=== PATIENT | male | born 1955 | race Caucasian/White ===

== ENCOUNTER 2016-08-19 12:24 | Emergency (ER) | payer OTHER ==
[2016-08-19 15:01] LABS: Hematocrit 44.7 % (42.0-52.0); Hemoglobin 15.3 gm/dL (13.5-18.0); Mean Cell Volume 92.9 fl (78-100); Mean Corpuscular Hemoglobin 31.8 pg (27-31); Mean Corpuscular Hgb Conc 34.2 g/dl (32-36); Mean Platelet Volume 9.4 fl (6.0-9.5); Neutrophil # 7.3 K/mm3 (1.3-6.0); Neutrophil % 65.8 % (42-75.0); Platelet Count 291 K/mm3 (150-450); Red Blood Count 4.81 M/mm3 (4.7-6.0); Red Cell Distribution Width 13.2 % (11.5-14.0)
[2016-08-19 15:11] LABS: Anion Gap 13.7 mmol/L (6.8-13.8); BUN/Creatinine Ratio 18.8 (9.0-21.6); Bilirubin, Total 0.4 mg/dL (0.0-1.1); Ca. Corrected For Albumin 8.4 mg/dL (8.4-10.2); Calcium * 8.7 mg/dL (7.9-10.9); Carbon Dioxide 28.9 mmol/L (24-32.6); Potassium 4.6 mmol/L (3.4-4.6); Total Protein 7.4 gm/dL (6.2-8.2)
[2016-08-19 15:45] LABS: Hemoglobin A1C 5.9 % (4.00-6.0)
--- NOTE | 2016-08-19 15:46 | ERNOTE ---
Medical Problem HPI - Narrative Date of Service: 08/19/16 - General Chief Complaint: General Assessment Time Seen by Provider: 08/19/16 15:26 Source: patient Exam Limitations: no limitations - Immun/Allergies/Home Medications Immunizations: IMMUNIZATION HX Immunizations Up to Date Yes History of Influenza Vaccine Yes Hx Pneumococcal Vaccination More Information Required Allergies/Adverse Reactions: Allergies ibuprofen Adverse Reaction (Mild, Verified 08/19/16 13:36) gi upset milk Adverse Reaction (Mild, Verified 08/19/16 13:36) intolerance Lueptup-Hvz-Imm Reductase Inhibitor Adverse Reaction (Mild, Verified 08/19/16 13 :36) Muscle Pain Home Medications: HOME MEDICATIONS Albuterol Sulfate [Proventil Hfa] 1 - 2 puff IH Q6H PRN 05/29/13 [Last Taken Unknown] Omeprazole 20 mg PO DAILY 05/29/13 [Last Taken 02/26/14] Fluticasone/Salmeterol [Advair 250-50 Diskus] 1 puff IH BID 04/13/15 [Last Taken Unknown] Diclofenac Sodium [Voltaren] 100 mg PO BID 03/18/16 [Last Taken Unknown] Warfarin Sodium [Coumadin] 0 mg PO DAILY 03/18/16 [Last Taken Unknown] Albuterol Sulfate 2.5 mg IH Q4H PRN 08/19/16 [Last Taken Unknown] Aspirin [Aspirin Enteric Coated] 81 mg PO DAILY 08/19/16 [Last Taken Unknown] Cyclobenzaprine HCl [Flexeril] 10 mg PO TID PRN #30 tab 08/19/16 [Last Taken Unknown] - History of Present History Narrative: Pt. comes in with c/o intermittent leg cramps that occur mostly at night and a belly cramp that occurs when he sits forward in his truck and R lateral back pain that occurs only when he bends to the left. Pt. garza a hx of multiple surgeries in his back and L hip. Review of Systems - Review of Systems Constitutional: Present: no symptoms reported. Absent: recent illness, fever, chills, weakness, fatigue EYE: Present: no symptoms reported ENT: Present: no symptoms reported Respiratory: Present: no symptoms reported. Absent: shortness of breath, cough , wheezing Cardiology: Present: no symptoms reported. Absent: chest pain, palpitations, edema Gastrointestinal/Abdominal: Present: abdominal pain - intermittent LUQ when bent at waist. Absent: nausea, vomiting, diarrhea Genitourinary: Present: no symptoms reported. Absent: frequency, pain, dysuria , decreased urinary output Musculoskeletal: Present: back pain - R lateral when he bends to the left, muscle pain - B legs spasm intermittently Skin: Present: no symptoms reported Neurological: Present: no symptoms reported. Absent: headache, dizziness/light- headedness, numbness, tingling Endocrine: Present: no symptoms reported All Other Systems: All systems neg except as marked - Patient's Past Medical History Patient History - Medical: No pertinent hx Patient History - Cardiac/Respiratory: COPD, Pulmonary Embolism Patient History - Cancer: No Hx of Cancer Patient History - Surgical Procedures: Other - pin in left little finger - Family History Father Family History - Medical: , History Unknown m,other Family History - Medical: No pertinent hx Family History - Cardiac/Respiratory: History Unknown - Social History Living Situations: home Smoking Status: Current every day smoker Have you smoked in the past 12 months: Yes Do you dip or chew tobacco: No Alcohol Use: occasionally Drug Use: none Physical Exam - Physical Exam General Appearance: Present: wd/wn, alert, no apparent distress Eye Exam: Normal inspection: bilateral, PERRL: bilateral, EOMI: bilateral Ears, Nose, Throat: Present: normal ENT inspection, hearing grossly normal, normal pharynx Neck: Present: normal inspection, nontender. Absent: lymphadenopathy (R), lymphadenopathy (L) Respiratory: Present: no respiratory distress, normal breath sounds, no accessory muscle use, chest nontender, lungs clear Cardiovascular/Chest: Present: regular rate, rhythm, no murmur, normal peripheral pulses Gastrointestinal/Abdominal: Present: normal bowel sounds, nondistended, soft, no organomegaly, tenderness - LUQ Back Exam: Present: normal inspection, normal range of motion, no CVA tenderness Extremity Exam: Present: normal inspection, non-tender, no edema, normal range of motion Neurological Exam: Present: alert, oriented, normal mood/affect, no motor/ sensory deficits Skin Exam: Present: normal color, warm/dry. Absent: pallor, skin rash ED Progress - Results and Orders Patient's Lab Results:: I have reviewed the patient's lab results. - Vital Signs Patient's Vital Signs:: I have reviewed the patient's vital signs. Vital Signs: Vital Signs 08/19/16 08/19/16 13:25 15:14 Temperature 37 C Pulse Rate 90 79 Respiratory 18 12 Rate Blood Pressure 151/87 169/82 O2 Sat by Pulse 95 95 Oximetry - Progress/Reassessment Chief Complaint: General Assessment Departure - Departure Clinical Impression: Restless leg syndrome, Muscle spasm Disposition: Home self-care Condition: Good Instructions: Muscle Cramps and Spasms, [id number], Restless Legs Syndrome Additional Instructions: Increase fluid intake and eat vitamin rich foods. Referrals: Eamon Parekh MD [Primary Care Provider] - Prescriptions: Cyclobenzaprine HCl [Flexeril] 10 mg PO TID PRN #30 tab PRN Reason: MUSCLE SPASMS
[2016-08-19 17:12] VITALS: BP 140/80
== END 2016-08-19 17:33 | disposition home or self-care (01) ==
LOC: ER 12:24
DX: G25.81 Restless legs syndrome (principal); M62.838 Other muscle spasm; K59.00 Constipation, unspecified; F17.210 Nicotine dependence, cigarettes, uncomplicated; J44.9 Chronic obstructive pulmonary disease, unspecified

== ENCOUNTER 2017-04-17 06:32 | Day surgery (SDC) | payer OTHER ==
[~2017-04-17 06:32] MED LIST: RINGER'S SOLUTION,LACTATED 1,000 ML IV PRN; ceFAZolin SODIUM 1 GM VIAL IV PRN
[2017-04-17 06:57] LABS: INR 0.94 INR (0.90-1.10); Prothrombin Time (Patient) 9.8 Seconds (9.4-11.4)
[2017-04-17] MEDS ORDERED: RINGER'S SOLUTION,LACTATED 1,000 ML IV ONE ×2 (07:10→08:00)
--- NOTE | 2017-04-17 09:31 | OR ---
Operative Report - Dictated Report Narrative: Date: 04/17/2017 Physician: Kieran Avitia M.D. Taxation Agent: Constantino Padilla PA-C Preoperative diagnosis: Right Shoulder supraspinatus rotator cuff tear, biceps tendinopathy with superior labrum anterior to posterior tear Postoperative diagnosis: Right Shoulder supraspinatus rotator cuff tear, biceps tendinopathy, superior labrum anterior to posterior tear, partial-thickness subscapularis tear Procedure: Right shoulder arthroscopy with mini open rotator cuff repair, biceps tenotomy, labral debridement, subscapularis rotator cuff debridement Anesthesia: General plus regional Complications: None Estimated blood loss: Minimal Specimens: None Retained implants: [employer] 4.5 mm peek helicoil anchor 1, footprint anchor 2 Drains: None Indications: Mr. Kincaid Is a 62 year-old gentleman who has been followed in my clinic with complaints of shoulder pain consistent with rotator cuff and labral as well as biceps pathology. Physical exam and diagnostic imaging were consistent with his complaints and concern for full-thickness rotator cuff tear and biceps and labral tear. Conservative measures have failed including, but not limited to, passage of time, activity modification, medications, physical therapy/home exercise program, or injections. The risks, benefits, and alternatives were discussed in clinic. The risks being , bleeding, infection, blood clots, nerve, tendon, ligament, blood vessel injury, persistent pain, arthrosis, stiffness, need for prolonged therapy, need for additional procedures, and persistent symptoms. Consent was obtained in the clinic. Procedure: After marking the correct extremity in the preoperative holding area, a timeout was performed in the operating room. IV antibiotics consisting of Ancef were administered prior to the procedure. A general followed by regional anesthetic was induced by the nurse dredge mechanic per my request. This was in the supine position, then the patient was transitioned to a beachchair position with all bony prominences well-padded, head in neutral, the nonoperative arm well supported, and the legs padded with SCDs in place. The operative shoulder was then prepped and draped in a standard sterile fashion. Preoperatively the shoulder had full passive range of motion, and no gross instability. After marking out the bony landmarks, saline was infused into the joint through a posterior lateral portal site. A kirk incision was made, and the blunt trocar and cannula was introduced into the shoulder joint. An accessory portal was placed in the rotator cuff interval using a spinal needle for guidance. Upon initial evaluation, the biceps tendon showed significant tearing and fraying as it inserted onto the labrum. The middle glenohumeral ligament was intact. Subscapularis tendon was for age at the superior insertion but not frankly torn. The glenoid showed moderate degenerative change. The humeral head articular surface showed moderate degenerative change. The anterior labrum was frayed but intact up to the 2 o'clock position. The superior labrum was torn and flipped into the joint at the biceps labral junction from approximately 10: 00 to 2:00. The pouch was unremarkable. The posterior labrum was frayed but intact. The supraspinatus tendon was torn and elevated from just behind the biceps to the anterior portion of the infraspinatus. The infraspinatus tendon was torn at the anterior portion but intact posteriorly. Utilizing accessory portal the biceps was tenotomized as it inserted onto the labrum. The flipped unstable superior labrum was debrided maintaining the anterior and posterior labral tissue. The subscapularis superior portion was debrided using a shaver involving less than 50% of the thickness over less than 5-6 mm. Attention was then turned to the subacromial space. Subacromial bursectomy was performed utilizing the prior portals. The coracoacromial ligament was intact. The bursal side of the rotator cuff demonstrated full-thickness tears identified intra-articularly. The acromial arch was unremarkable. Based on the arthroscopic findings, as well as exam and radiographic findings, it was elected to proceed with a mini open rotator cuff repair. A longitudinal incision centered over the previously identified rotator cuff tear was made just off the edge of the acromion. This was approximately 5 centimeters in length. The deltoid fascia was split sharply in line with its fibers, and blunt dissection was carried through the deltoid muscle. Any remaining subacromial bursal tissue was debrided in order to expose the underlying rotator cuff tear. The rotator cuff tear appeared to be inverted T orientation. The tuberosity was debrided of its soft tissues producing a bleeding bed for the tendon to be secured to. 1 4.5 mm PEEK helicoil anchor was placed just off the articular surface of the humeral head. A series of horizontal mattress sutures were placed at the prepared edge of the rotator cuff. This allowed for a tension-free return of the tendon to the greater tuberosity. The sutures were then passed longitudinally into 2 4.5 mm PEEK footprint anchor. One of these was utilized as a knotless repair of the anterior portion of the infraspinatus. This was performed and a suture bridge technique. This gave good overall compression to the rotator cuff at the insertion site. The shoulders place a range of motion and had no lift off of the repair site as well as no crepitance or signs of impingement. Full passive range of motion was able to be obtained. Once it was felt that the rotator cuff was adequately repaired, the wounds were thoroughly irrigated. 0 Vicryl was utilized in order to repair the deltoid fascia. 3-0 Vicryl was placed in the subcutaneous tissue. The rotator cuff incision as well as the portal sites were closed with interrupted nylon. Dressings consisting of Xeroform, 4 x 4, ABD, soft roll, and tape were applied. All sponge, needle, blade, and instrument counts were correct prior to closing the wounds. The patient was awoken and transferred to the postanesthesia care unit in stable condition.
--- NOTE | 2017-04-17 09:51 | OR ---
Anesthesia Procedure Note - Anesthesia Procedure Note Date of Service: 04/17/17 Narrative: Vital Signs - Last Taken Temp 36.5 C 04/17/17 09:40 Pulse 89 04/17/17 09:45 Resp 16 04/17/17 09:45 BP 151/85 04/17/17 09:45 Pulse Ox 98 04/17/17 09:45 O2 Oxygen Delivery Method Nasal Cannula 04/17/17 09:50 ANESTHESIA PROCEDURE NOTE Date of Procedure: 04/17/2017 Time of procedure: . Performed by: KIRK Jorge CRNA, MSN Desk Assistant: Marisela Romo RN. Preprocedure diagnosis: Post right shoulder surgery pain relief. Post procedure diagnosis: Same. Procedure: Right Interscalene nerve block. Indications: Post great shoulder surgery pain relief. Findings: See below. Details of the procedure: The patient was brought to OR #4 and placed in semi- Fowlers position. The patient was prepped with chlorhexidine and using ultrasound guidance the right interscalene segment of the brachial plexus was identified and lidocaine 1% was infiltrated to the skin of the intended injection site. Under ultrasound guidance the interscalene nerve bundles were approached until a shoulder/arm response was identified on nerve stimulator. Once the stimulator response was effective at less than 0.5 mV and greater than 0.3 mV the femoral nerve was surrounded with 30 mL bupivacaine 0.5% with 1-200, 000 epinephrine. Please see radiology/ultrasound report for details and images of the procedure. EBL: 0 Fluids: N/A. Specimen: N/A. Post procedure condition: The patient tolerated the procedure well. No complications were noted. Thank you for this consultation. Enoc Mullins CRNA, ARNP, MSN
[2017-04-17 14:20] VITALS: BP 140/74
== END 2017-04-17 06:33 | disposition home or self-care (01) ==
LOC: AMB 06:32
PROVIDERS: ATTEND Orthopaedic Surgery
PROC: 0LQ10ZZ Repair Right Shoulder Tendon, Open Approach (ICD-10-PCS; 2017-04-17)
PROC: 3E0T3BZ Introduction of Anesthetic Agent into Peripheral Nerves and Plexi, Percutaneous Approach (ICD-10-PCS; 2017-04-17)
PROC: 0RBJ4ZZ Excision of Right Shoulder Joint, Percutaneous Endoscopic Approach (ICD-10-PCS; principal; 2017-04-17 08:00)
DX: S43.491A Other sprain of right shoulder joint, initial encounter (principal); M75.101 Unspecified rotator cuff tear or rupture of right shoulder, not specified as traumatic; M75.21 Bicipital tendinitis, right shoulder; E11.9 Type 2 diabetes mellitus without complications; E78.5 Hyperlipidemia, unspecified; K21.9 Gastro-esophageal reflux disease without esophagitis; M19.90 Unspecified osteoarthritis, unspecified site; J44.9 Chronic obstructive pulmonary disease, unspecified; Z86.711 Personal history of pulmonary embolism; Z79.01 Long term (current) use of anticoagulants; F17.200 Nicotine dependence, unspecified, uncomplicated; Z68.27 Body mass index [BMI] 27.0-27.9, adult

== ENCOUNTER 2018-11-16 07:41 | Inpatient (IN) ==
[~2018-11-16 07:41] MED LIST changes: +MORPHINE SULFATE 30 MG TABLET.SA PO PRN; +TRANEXAMIC ACID 1,000 MG in NORMAL SALINE 100 ML IV PRN
[2018-11-16 08:52] LABS: Prothrombin Time (Patient) 10.3 Seconds (9.1-10.7)
[2018-11-16 08:53] LABS: INR 1.04 INR (0.92-1.08)
--- NOTE | 2018-11-16 11:14 | ANES ---
Anesthesia Pre Procedure Eval Vitals/Labs: Last Vital Signs Temp 37.0 C 11/16/18 08:00 Pulse 96 11/16/18 08:00 Resp 20 11/16/18 08:00 BP 135/73 11/16/18 08:00 Laboratory Last Values PT 10.3 Seconds (9.1-10.7) 11/16/18 08:35 INR (Anticoag Therapy) 1.04 INR (0.92-1.08) 11/16/18 08:35 HOME MEDICATIONS Albuterol Sulfate [Proventil Hfa] 1 - 2 puff IH Q6H PRN 05/29/13 [Last Taken Unknown] Albuterol Sulfate 2.5 mg IH Q6H PRN 08/19/16 [Last Taken Unknown] Aspirin [Aspirin Enteric Coated] 81 mg PO DAILY 08/19/16 [Last Taken 11/10/18] Warfarin Sodium 5 mg PO TU 05/11/18 [Last Taken 11/04/18] Warfarin Sodium [Coumadin] 7 mg PO SUMOWETHFRSA 05/11/18 [Last Taken 11/08/18] omeprazole 20 mg capsule,delayed release 20 mg PO DAILY #90 cap 05/26/18 [Last Taken 11/15/18] fluticasone 200 mcg-vilanterol 25 mcg/dose powder for inhalation 1 inh IH DAILY #60 ea 09/22/18 [Last Taken 11/15/18] TENS unit electrodes pads See Dose Instructions .ROUTE .MEDSUPPLY #4 ea 09/30/18 [Last Taken Unknown] hydrocodone 7.5 mg-acetaminophen 300 mg tablet 1 tab PO Q6H PRN #60 tab 11/15/18 [Last Taken 11/15/18] metoprolol tartrate 25 mg tablet 25 mg PO BID #60 tab 11/15/18 [Last Taken 11/15/18] Allergies/Adverse Reactions: Allergies Allergy/AdvReac Type Severity Reaction Status Date / Time ibuprofen AdvReac Mild gi upset Verified 11/16/18 07:57 milk AdvReac Mild intolerance Verified 11/16/18 07:57 Jnnbieq-Jzn-Xll Reductase AdvReac Mild Muscle Pain Verified 11/16/18 07:57 Inhibitor - Planned Procedure Planned Procedure: Rt anatomical Total Shoulder Medication List Reviewed:: Yes Allergies Verified: Yes Medical History (Last Reviewed 04/02/19 @ 11:04 by Schuyler Whittaker CRNA) Osteoarthritis of shoulder (Chronic) Satnam presents for evaluation of right shoulder pain consistent with glenohumeral osteoarthritis. He underwent previous rotator cuff repair approximately 2 years ago. He has had continued pain and stiffness since that time consistent with arthritis. His recent MRI demonstrates an intact rotator cuff. I counseled him on options including anatomic total shoulder replacement. I counseled him on the risk of surgery including, but not limited to, infection, neurovascular injury, intraoperative fracture, aseptic loosening, dislocation, persistent pain, weakness, stiffness, and risks with anesthesia. After discussion he wishes to proceed with a right anatomic total shoulder replacement. Spinal stenosis (Chronic) Shoulder pain (Chronic) Onset Date: Unknown right Tenosynovitis of forearm (Chronic) Pulmonary embolism (Chronic) Osteopenia (Chronic) Osteoarthritis (Chronic) Lumbago (Chronic) Hyperlipidemia (Chronic) Clavicle fracture (Chronic) DVT (deep venous thrombosis) (Chronic) history COPD (chronic obstructive pulmonary disease) (Chronic) history Cervical spondylitis (Chronic) Back pain (Chronic) Surgical History (Last Reviewed 11/16/18 @ 11:04 by Schuyler Whittaker CRNA) History of inguinal hernia repair Onset Date: 07/29/18 [facility]-left H/O arthroscopic knee surgery Onset Date: 08/20/10 [facility]-right H/O esophagogastroduodenoscopy Onset Date: 06/23/07 [facility]-01/08/05-benign stratified squamous epithelium. 06/23/07-mild esophagitis. H/O hand surgery Onset Date: Unknown right H/O laminectomy Onset Date: 10/27/11 04/27/01, 04/2008, 10/27/11 [facility]-L3-L5 direct lateral interbody fusion and posterior lateral fusion H/O nasal septoplasty Onset Date: 11/25/01 [facility] History of arthroscopic surgery of shoulder Onset Date: 04/17/17 [place]-right w/mini open rotator cuff repair, biceps tenotomy, labrl debridement, subscapularis rotator cuff debridement. History of tonsillectomy Onset Date: ~1970 Loss of teeth due to extraction Onset Date: Unknown all teeth Previous back surgery Onset Date: 09/10/15 [facility]-Dr Found- 2 plates and 4 scews S/P epidural steroid injection Onset Date: 02/04/08 12/05/05-C3-4, 02/04/08-L3-4 S/P tendon repair Onset Date: ~1969 right forearm h/o finger surgery Onset Date: Unknown [facility]-left small finger History of carpal tunnel release Onset Date: 06/02/14 10/21/9930-Hstfczb-tbql. 06/02/14 [place]-right. History of colonoscopy Onset Date: 11/30/14 [facility]-01/08/05-adenomatous polyp w/superficial atypia and early carcinoma in situ. 06/23/07-internal hemorrhoids. 10/04/13 [place]-diverticulosis. Recheck 10 yrs. 11/30/1433-Cjpqoas-mxblgoy polyps. History of total hip replacement Onset Date: ~07/2008 Left-1986, 1989, 07/2008 revision left total hip S/P cubital tunnel release Onset Date: 06/02/14 10/21/99 [facility]-left. 06/02/14 [place]-right history of bone graph Onset Date: ~1982 [facility] leg Family History (Last Reviewed 11/16/18 @ 11:04 by Schuyler Whittaker CRNA) Father , never knew him No problems noted. Mother Heart disease Hypertension Diabetes CVA (cerebral vascular accident) Brother Diabetes 1 brother Alive and well 1 brother Sister Cancer brain cancer, female cancer Diabetes Daughter Down's syndrome - Airway/Neck/Teeth Within Normal Limits:: Yes Denture Type: Full upper, Full lower Mallampatti Score: 2 Thyromental (T-M) distance: > 6 cm Mandibulo Hyoid distance: > 3 cm - Respiratory Respiratory History: COPD Respiratory Physical: wheezing Smoking Status: Current every day smoker Discussed smoking cessation including day of surgery: No Sleep Apnea currently treated: No Sleep Apnea by current assessment: No Discussed Risks/Treatment of AMARA: No - Cardiovascular Tolerate Activity: Fair Heart Sounds: S1 & S2, Regular - Anesthesia Assessment and Plan ASA Class: PS, III Anesthesia Type Plan: General LMA, Block - Right ultrasound guided interscalene nerve block for postop analgesia
[2018-11-16] MEDS ORDERED: ACETAMINOPHEN 500 MG TABLET PO PRN (13:53)
[2018-11-16] MEDS ORDERED: MAGNESIUM HYDROXIDE 30 ML UDC PO PRN (13:53)
[2018-11-16] MEDS ORDERED: MORPHINE SULFATE 2 MG/ML DISP.SYRIN IV PRN ×2 (13:53→15:00)
[2018-11-16] MEDS ORDERED: NORMAL SALINE 1,000 ML IV PRN (13:53)
[2018-11-16] MEDS ORDERED: oxyCODONE HCL/ACETAMINOPHEN 1 TAB TABLET PO PRN (13:53)
[2018-11-16] MEDS ORDERED: ONDANSETRON HCL/PF 2 MG/ML VIAL IV PRN (13:53)
[2018-11-16] MEDS ORDERED: MAG HYDROX/ALUMINUM HYD/SIMETH 30 ML UDC PO PRN (13:53)
--- NOTE | 2018-11-16 14:13 | OR ---
Operative Report - Dictated Report Narrative: Date: 11/16/2018 Physician: Carroll Robledo M.D. Refurbish Technician: Juan Coto PA-C Preoperative diagnosis: Right glenohumeral osteoarthritis Postoperative diagnosis: Right glenohumeral osteoarthritis Procedure: Right anatomic total shoulder arthroplasty Anesthesia: General plus regional Complications: None Estimated blood loss: 150 mL Specimens: Bone for disposal Retained implants: Depuy Global Unite size 14 standard stem, Global Unite anatomic proximal body size 14, Global Unite eccentric humeral head 56 mm x 21 mm, Global anchor peg glenoid size 52 mm Drains: None Indications: Satnam is a 63 year-old male who has been followed in my clinic with complaints of shoulder pain consistent with right glenohumeral arthritis. Physical exam and diagnostic imaging were consistent with his complaints and concern for glenohumeral arthritis with an intact rotator cuff. Conservative measures have failed including, but not limited to, passage of time, activity modification, medications, physical therapy/home exercise program, or injections. The risks, benefits, and alternatives were discussed in clinic. The risks being , bleeding, infection, blood clots, nerve, tendon, ligament, blood vessel injury, persistent pain, arthrosis, stiffness, need for prolonged therapy, implant failure/loosening, need for additional procedures, and persistent symptoms. Consent was obtained in the clinic. Procedure: After marking the correct extremity in the preoperative holding area, a timeout was performed in the operating room. IV antibiotics consisting of 2 g of Ancef were administered prior to the procedure. A general followed by regional anes thetic was induced by the nurse it support manager. This was in the supine position, then the patient was transitioned to a beachchair position with all bony prominences well-padded, head in neutral, the nonoperative arm well supported, and the legs padded with SCDs in place. The operative shoulder was then prepped and draped in a standard sterile fashion. Preoperatively the shoulder had slightly limited abduction and external rotation. After marking out the bony landmarks, an approximately 12 cm deltopectoral incision was marked out and incised with a sharp knife. A combination of blunt dissection and electrocautery was carried down through subcutaneous tissue to the level of the deltopectoral fascia. The fascial interval was developed with Metzenbaum scissors identifying the cephalic vein which was protected. Blunt finger dissection was used to develop the deltopectoral interval and the deltoid and cephalic vein were retracted laterally while the pectoralis major was retracted medially. This revealed the conjoined tendon and anterior aspect of the shoulder. The bicipital groove was identified as well as the lesser tuberosity and we marked out our location for our subscapularis tenotomy. The subscapularis tendon was tagged with Vicryl suture and then peeled off of its insertion. Our incision was carried up through the rotator cuff interval to the level of the glenoid. The inferior aspect of the subscapularis as well as the inferior capsule was released taking care to protect the axillary nerve. The capsule was then released from the anterior and inferior aspects of the glenoid. At this point the arm was externally rotated and the shoulder dislocated delivering the humeral head up and out of the wound. The supraspinatus tendon was inspected and noted to be intact. At this point we identified our starting point for the humeral starting reamer centered over the intramedullary canal just onto the articular surface of the superior aspect of the humeral head. The entry reamer was advanced down the intramedullary canal of the humerus. Sequential hand reaming up to a size 14 mm reamer was performed achieving good chatter cortical chatter. The reamer was left in place and then the humeral head cutting jig was attached. This was placed in approximately 25 of retroversion at the appropriate height based on the level of the greater tuberosity. This was then pinned into place and the reamer removed. The humeral head was then resected being careful to protect the supraspinatus insertion. A rongeur was used to clean up some anterior and inferior osteo phyte. A protective metal cap was then placed over the cut end of the proximal humerus. Attention was then turned to the glenoid. A series of glenoid retractors were used to retract the humeral head posteriorly and inferior out of the way well as to retract the anterior soft tissue giving us 360 exposure of the glenoid. The labrum was then removed in its entirety with a sharp knife. The base of the coracoid was identified as well as the inferior/lateral border of the scapula and these were marked out to establish the bony anatomy of the glenoid. The glenoid was sized to a 52 mm component. The glenoid guide was then placed in the appropriate position and the center guide pin was advanced into place. The glenoid was then reamed removing all cartilage and soft tissue being careful to preserve subchondral bone. The central peg drill was then advanced down over our central pin and drilled. The drill guide for the peripheral pegs was then placed with one peg superiorly and two pegs inferiorly. These were sequentially drilled. The guide was then removed. The glenoid was then irrigated and thoroughly dried and bone cement was packed into the peripheral peg holes. A size 52 mm Global anchor peg glenoid was then impacted into place. Once the cement had adequately cured we turned our attention back to the humerus. A size 14 broach was advanced into the appropriate position once again in 25 of retroversion. A size 14 trial humeral stem was then impacted into place and we began trialing humeral heads. It was determined that a size 56 x 21 mm eccentric head with the eccentricity placed posteriorly and slightly inferior gave us the best fit with good stability. Full passive range of motion was able to be obtained. The final 14 mm humeral component was then assembled on the back table. Drill holes were made in the proximal humerus in preparation for our subscapularis repair. #2 Fiberwire was placed through the subscapularis, through the implant, and out through the drill holes using a Hewson suture passer. The humeral component was then impacted into its final position in the appropriate amount of retroversion. We then re-trialed our humeral head to c onfirm the appropriate size. The final humeral head was then impacted into place with the eccentricity placed posteriorly and inferiorly. A final check demonstrated full passive range of motion with good stability. At this point the wound was copiously irrigated with normal saline. The subscapularis sutures were sequentially tied bringing the tendon down to the lesser tuberosity. This was then oversewn with 1 Vicryl. 0 Vicryl was utilized in order to repair the delto-pectoral fascia. 3-0 Vicryl was placed in the subcutaneous tissue. Skin was closed with a running subcuticular 4-0 Monocryl. Dressings consisting of Prineo, 4 x 4, ABD, and tape were applied. The operative arm was then placed in a shoulder immobilizer. All sponge, needle, blade, and instrument counts were correct prior to closing the wounds. The patient was awoken and transferred to the postanesthesia care unit in stable condition.
[2018-11-16] MEDS ORDERED: ALBUTEROL SULFATE 2.5 MG/0.5 ML VIAL.NEB IH ONE (14:21)
[2018-11-16] MEDS ORDERED: MORPHINE SULFATE 4 MG/ML SYRG IV PRN (14:38)
--- NOTE | 2018-11-16 14:38 | ANES ---
Post Anesthesia Discharge - Transfer of Care Transfer of Care handoff given to nurse: Yes - Discharge from PACU Discharge from PACU when meets criteria: Yes - Discharge to ASU Discharge to ASU-no complications/pt stable: Yes
--- NOTE | 2018-11-16 14:41 | ANES ---
Anesthesia Procedure Note Procedure Note: ANESTHESIA PROCEDURE NOTE Date of Procedure: 11/16/2018. Time of procedure: 1135. Performed by: Schuyler Whittaker CRNA Conveyor Belt Installer: None. Preprocedure diagnosis: Right glenohumeral humeral osteoarthritis. Post procedure diagnosis: Same. Procedure: Right ultrasound guided interscalene nerve block for postoperative analgesia. Indications: The patient is a 63 -year-old male, requesting right ultrasound- guided interscalene nerve block for postoperative analgesia related to right anatomical total shoulder arthroplasty. Findings: See below. Details of the procedure: The tissue over the intended target site was cleansed with ChloraPrep. 1 ml Lidocaine 1 % was infiltrated to the skin and subcut aneous tissue. Under sterile technique and ultrasound guidance a 22-gauge block needle was inserted to the right brachial plexus nerve bundle between the anterior scalene and the middle scalene muscles. 40 mL's of 0.5% bupivacaine plus epinephrine 1:200,000 was injected after negative aspiration for blood. Needle tip and spread of local anesthetic around the brachial plexus was observed throughout the injection with realtime ultrasound visualization. The needle was removed intact. No complications were noted. The images were retained in the hospital medical database . EBL: Minimal. Fluids: N/A. Specimen: N/A. Post procedure condition: The patient tolerated the procedure well. No complications were noted. Thank you for this consultation. Schuyler Whittaker CRNA
--- NOTE | 2018-11-16 14:45 | ANES ---
Post Anesthesia Assessment - Vital Signs Vitals: Last Vital Signs Temp 36.4 C 11/16/18 14:35 Pulse 81 11/16/18 14:35 Resp 22 H 11/16/18 14:35 BP 143/79 11/16/18 14:35 Pulse Ox 94 11/16/18 14:35 Airway Patency: Normal - Mental Status Level Of Consciousness: Awake - Pain Level Pain Score: 10 - N/V Assessment Nausea/Vomiting Presence: None Dehydration:: No
[2018-11-16] MEDS: oxyCODONE HCL/ACETAMINOPHEN 1 TAB TABLET PO PRN ×2 (15:21→19:51)
[2018-11-16] MEDS ORDERED: WARFARIN SODIUM 5 MG TABLET PO SCH (17:00)
[2018-11-16] MEDS: ceFAZolin SODIUM 2 GM in DEXTROSE 5 % IN WATER 50 ML IV SCH ×2 (18:56)
[2018-11-16] MEDS: SENNOSIDES/DOCUSATE SODIUM 1 TAB TABLET PO SCH (21:30)
[2018-11-16] MEDS: METOPROLOL TARTRATE 25 MG TABLET PO SCH (21:30)
[2018-11-16] MEDS: FLUTICASONE PROPION/SALMETEROL 14 PUFF DISK.W.DEV IH SCH ×2 (21:30→21:32)
[2018-11-17] MEDS: ceFAZolin SODIUM 2 GM in DEXTROSE 5 % IN WATER 50 ML IV SCH ×4 (02:06→09:39)
[2018-11-17] MEDS: oxyCODONE HCL/ACETAMINOPHEN 1 TAB TABLET PO PRN ×5 (02:15→19:55)
[2018-11-17 05:53] LABS: Prothrombin Time (Patient) 10.7 Seconds (9.1-10.7)
[2018-11-17 06:06] LABS: INR 1.08 INR (0.92-1.08)
[2018-11-17] MEDS: ENOXAPARIN SODIUM 40 MG/0.4 ML SYRG SC SCH (08:48)
[2018-11-17] MEDS: ASPIRIN 81 MG TABLET.DR PO SCH (08:49)
[2018-11-17] MEDS: METOPROLOL TARTRATE 25 MG TABLET PO SCH (08:49)
[2018-11-17] MEDS: FLUTICASONE PROPION/SALMETEROL 14 PUFF DISK.W.DEV IH SCH ×2 (08:50→20:04)
[2018-11-17] MEDS ORDERED: WARFARIN SODIUM 2 MG TABLET PO SCH (13:56)
--- NOTE | 2018-11-17 14:00 | DS ---
(1) Status post total replacement of right shoulder Problem: Acute Description of Stay: Patient is 63-year-old man who was admitted postoperatively after a right anatomic total shoulder replacement. Patient was admitted for postoperative monitoring, pain control with p.o. pain medication, return to p.o. diet, PT/OT. 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 Discussed with patient continued treatment with home physical therapy. Patient will be bridged with Lovenox, he was previously given a 5-day course of Lovenox to begin postoperatively he will follow-up on 11/22/18 with the Coumadin clinic. They will determine if his INR is therapeutic at this time. She will return to orthopedic outpatient clinic at 2 weeks postoperatively. He will continue to progress per protocol with physical therapy/occupational therapy at this time. Recommendations as follows: -Right upper extremity sling immobilizer, PT/OT exercises -P.o. pain medication as needed -P.o. diet as tolerated -Ambulation with right upper extremity in sling immobilizer -Lovenox for the next 5 days, previously prescribed by Coumadin clinic, will follow-up on 11/22/18 to monitor INR -Satnam Kincaid is confined to his home due to status post right total anatomic shoulder replacement. The need for jail, physical therapy, occupational therapy for monitoring postoperative wound for erythema and drainage, PT/OT to advance per anatomic total shoulder protocol. The need for home health care skilled services is directly related to the time spent [id number] with this person. Patient will require the services until he is able to take himself to outpatient physical therapy/occupational therapy. -Follow-up with orthopedic outpatient clinic at [address] Robledo Procedures Performed: see notes below List Procedures: Status post right total anatomic shoulder replacement Results and Findings: Lab Pending Results 11/16/18 08:35: PT 10.3, INR (Anticoag Therapy) 1.04 11/17/18 05:05: PT 10.7, INR (Anticoag Therapy) 1.08 Discharge Location: Home Disposition: Home Health Service Home Health Agency: [facility] Condition: Good Face to Face Encounter completed per CMS Guidelines: Yes Discharge Activity: Activity as tolerated, Non-Weight bearing - Right upper extremity, sling/immobilizer for all activity outside of PT/OT Discharge Diet: General/regular food Referrals: Eamon Parekh MD [Primary Care Provider] - Problem Oriented Discharge Instructions to Patient/Family: Shoulder Joint Replacement, Care After Print Language (Serbian or Slovenian Available): Serbian Additional Patient Instructions (free text): - Folow up Orthopedics appointment in [facility] office 12/01 at 10:30am. Scheduled to see Rimma Ellison in the Coumadin clinic on 11/22/18. Prescriptions (Any new or edited meds): oxyCODONE HCL/ACETAMINOPHEN [Percocet 5 MG/325 MG] 1 - 2 tab PO Q4H PRN #80 tab PRN Reason: Severe Pain (Pain Scale 7-10) Complete Home Medications List: Complete Home Medication List: Albuterol Sulfate [Proventil Hfa] 1 - 2 puff IH Q6H PRN 05/29/13 Albuterol Sulfate 2.5 mg IH Q6H PRN 08/19/16 Aspirin [Aspirin Enteric Coated] 81 mg PO DAILY 08/19/16 Warfarin Sodium 5 mg PO TU 05/11/18 Warfarin Sodium [Coumadin] 7 mg PO SUMOWETHFRSA 05/11/18 omeprazole 20 mg capsule,delayed release 20 mg PO DAILY #90 cap 05/26/18 fluticasone 200 mcg-vilanterol 25 mcg/dose powder for inhalation 1 inh IH DAILY #60 ea 09/22/18 hydrocodone 7.5 mg-acetaminophen 300 mg tablet 1 tab PO Q6H PRN #60 tab 11/15/18 metoprolol tartrate 25 mg tablet 25 mg PO BID #60 tab 11/15/18 Tens Unit Electrodes [Aleve Direct Therapy] 0 pad .ROUTE .MEDSUPPLY 11/16/18 oxyCODONE HCL/ACETAMINOPHEN [Percocet 5 MG/325 MG] 1 - 2 tab PO Q4H PRN #80 tab 11/17/18
--- NOTE | 2018-11-17 15:06 | PN ---
Progeselvia Note - Interim Date: 11/17/18 Time: 15:05 Narrative: 11/17/18 15:05 Was notified the patient was running a low-grade temperature of 38.1 C. Discussed due to patient's significant respiratory history as well as his current smoking and being hospitalized postoperatively concern for atelectasis. Discussed with nursing staff to educate patient on deep breathing treatments as well as ambulation and encourage continued monitoring for acute signs of infection. Patient has any significant breathing difficulty or acute changes to call or present to the ER. Nursing expressed understanding will educate patient. We will plan to continue with follow-up care as previously mentioned.
--- NOTE | 2018-11-17 15:45 | PN ---
Progess Note - Interim Date: 11/17/18 Time: 15:43 Narrative: 11/17/18 15:43 Patient's vitals were taken prior to discharge revealed a 39.1 C fever at this time. Discussed concern for acute worsening, patient has significant COPD history. Still high concern for atelectasis, discussed with Dr. Robledo. A chest x-ray has been ordered, incentive spirometry will be started, patient's medical physician will be consulted for evaluation. Will continue to determine cause of postoperative fever. We will postpone patient's discharge at this time until further evaluation has been completed. Continue with previous orthopedic recommendations will follow-up after medicine evaluation complete.
[2018-11-17] MEDS ORDERED: WARFARIN SODIUM 6 MG, WARFARIN SODIUM 1 MG PO SCH ×2 (17:00)
--- NOTE | 2018-11-17 17:08 | CONS ---
- Reason for consultation (1) Postoperative fever Date of Service: 11/17/18 HPI - General Date of Service: 11/17/18 Narrative: Satnam Malave is a 63-year-old white male with past medical history of COPD, pulmonary embolism, DVT, recent atrial fibrillation rate controlled, who underwent a right total shoulder arthroplasty yesterday and developed a postop fever of 39.1 on postop day 1 today. He denies any chills, chest pain, coug estella, shortness of breath, increased frequency or burning of urination, back pain, abdominal pain, calf pain, diarrhea. His newest medication is metoprolol titrate which he started the day before his surgery and had 2 tablets. He denied any choking with his meal intake. A chest x-ray wasn't done today and showed atelectasis in his right lung base but cannot rule out subtle pneumonia. Source: patient - History of Present Illness Timing/Duration: 1/2 hour Severity: mild Associated Symptoms: denies symptoms Allergies/Adverse Reactions: Allergies ibuprofen Adverse Reaction (Mild, Verified 11/16/18 07:57) gi upset milk Adverse Reaction (Mild, Verified 11/16/18 07:57) intolerance Gladetf-Ftn-Clw Reductase Inhibitor Adverse Reaction (Mild, Verified 11/16/18 07:57) Muscle Pain Home Medications: Home Medications Medication Instructions Recorded Last Taken Albuterol Sulfate [Proventil Hfa] 1 - 2 puff IH Q6H PRN 05/29/13 Unknown Albuterol Sulfate 2.5 mg IH Q6H PRN 08/19/16 Unknown Aspirin [Aspirin Enteric Coated] 81 mg PO DAILY 08/19/16 11/10/18 Warfarin Sodium 5 mg PO TU 05/11/18 11/04/18 Warfarin Sodium [Coumadin] 7 mg PO SUMOWETHFRSA 05/11/18 11/08/18 omeprazole 20 mg capsule,delayed 20 mg PO DAILY #90 cap 05/26/18 11/15/18 release fluticasone 200 mcg-vilanterol 25 1 inh IH DAILY #60 ea 09/22/18 11/15/18 mcg/dose powder for inhalation hydrocodone 7.5 mg-acetaminophen 1 tab PO Q6H PRN #60 tab 11/15/18 11/15/18 300 mg tablet metoprolol tartrate 25 mg tablet 25 mg PO BID #60 tab 11/15/18 11/15/18 Tens Unit Electrodes [Aleve Direct 0 pad .ROUTE .MEDSUPPLY 11/16/18 Unknown Therapy] oxyCODONE HCL/ACETAMINOPHEN 1 - 2 tab PO Q4H PRN #80 tab 11/17/18 Unknown [Percocet 5 MG/325 MG] Procedures APPLICATION OF SPLINT (07/15/09) Application of other cast (01/27/00) Application of splint (02/06/06) Arthroscopy, wrist (06/02/14) Closure of skin and subcutaneous tissue of other sites (03/14/08) Colonoscopy (10/04/13) Endoscopic polypectomy of large intestine (01/08/05) Esophagogastroduodenoscopy [EGD] with closed biopsy (06/23/07) Excision of Right Shoulder Joint, Percutaneous Endoscopic Approach (04/17/17) Excision of semilunar cartilage of knee (08/20/10) Fluoroscopy of Right Shoulder (02/19/17) Injection of anesthetic into spinal canal for analgesia (02/04/08) Injection of other agent into spinal canal (02/04/08) Injection of steroid (02/04/08) Injection of therapeutic substance into joint or ligament (10/14/99) Introduction of Anti-inflammatory into Joints, Percutaneous Approach (12/11/16) Introduction of Local Anesthetic into Joints, Percutaneous Approach (12/11/16) Introduction of Local Anesthetic into Peripheral Nerves and Plexi, Percutaneous Approach (04/17/17) Other peripheral nerve or ganglion decompression or lysis of adhesions (06/02/14) Other septoplasty (11/25/01) Other turbinectomy (11/25/01) Release of carpal tunnel (06/02/14) Repair Right Shoulder Tendon, Open Approach (04/17/17) Transposition of cranial and peripheral nerves (10/21/99) Medications - Medications Current Medications: Current Medications Aspirin (Aspirin Enteric Coated) 81 mg PO DAILY [facility] Stop: 12/17/18 09:01 Last Admin: 11/17/18 08:49 Dose: 81 mg Documented by: Enoxaparin Sodium (Lovenox) 40 mg SC Q24H GUZMAN Stop: 12/17/18 09:01 Last Admin: 11/17/18 08:48 Dose: 40 mg Documented by: Sodium Chloride (Sodium Chloride 0.9%) 1,000 mls @ 125 mls/hr IV .Q8H PRN PRN Reason: HYDRATION Stop: 12/16/18 13:54 Last Admin: 11/16/18 15:21 Dose: 125 mls/hr Documented by: Metoprolol Tartrate (Lopressor) 25 mg PO BID [facility] Stop: 12/16/18 21:01 Last Admin: 11/17/18 08:49 Dose: 25 mg Documented by: Morphine Sulfate (Morphine Sulfate) 2 mg IV Q1H PRN PRN Reason: Severe Pain (pain scale 7-10) Stop: 12/16/18 13:54 Last Admin: 11/17/18 07:42 Dose: 2 mg Documented by: Oxycodone/Acetaminophen (Percocet 5 Mg/325 Mg) 2 tab PO Q4H PRN PRN Reason: Severe Pain (pain scale 7-10) Stop: 12/16/18 13:54 Last Admin: 11/17/18 15:52 Dose: 2 tab Documented by: Fluticasone/Salmeterol (Advair 500-50 Diskus) 1 puff IH BID [facility] Stop: 12/16/18 21:01 Last Admin: 11/17/18 08:50 Dose: 1 puff Documented by: Senna/Docusate Sodium (Senokot-S) 2 tab PO HS [facility] Stop: 12/16/18 21:01 Last Admin: 11/16/18 21:30 Dose: 2 tab Documented by: Warfarin Sodium (Coumadin) 5 mg PO Tu@1700 [facility] Stop: 12/16/18 17:01 Last Admin: 11/16/18 18:56 Dose: 5 mg Documented by: Review of Systems - Review of Systems Generalized/Overall Review: Absent: Chills, Fever EENTM: Absent: Blurred Vision Respiratory: Absent: Cough, Shortness of Breath, Wheezing Cardiac: Absent: Chest Pain, Edema, Palpitations Abdominal: Absent: Nausea, Vomiting, Diarrhea Genitourinary: Absent: Itching, Urgency, Frequency Musculoskeletal: Present: Joint Pain Neurological: Absent: Headache Skin: Absent: Lesions, Rash Endocrine: Absent: Intolerance to Cold, Intolerance to Heat Physical Examination - Exam Vital Signs: Vital Signs - Last Taken Temp 39.2 C H 11/17/18 15:30 Pulse 97 11/17/18 14:10 Resp 18 11/17/18 14:10 BP 176/85 H 11/17/18 14:10 Pulse Ox 96 11/17/18 14:10 O2 Oxygen Delivery Method Room Air Constitutional: Present: Alert, Oriented x3, Cooperative ENT Exam: Present: hearing grossly normal Eye Exam: bilateral eye: normal inspection, PERRL, EOMI Neck: Present: supple Respiratory: Present: decreased breath sounds, No rales, No wheezing Cardiovascular/Chest: Present: no JVD, no murmur, irregularly irregular Abdomen: Present: Normal bowel sounds, nontender, nondistended Extremity: Present: no pedal edema, no calf tenderness Skin Exam: Present: other - incision wound- non erythematous, tender, not warm; prioe IV sites- no phlebitis. Absent: skin rash - Assessments/Findings (1) Postoperative fever Diagnosis(s): post-op day 1-likely due traumatic stress of surgery releasing cytokines. CXr does show atelectasis but recent literature are doubtful if these are real causes of post-op fever or just a coincidental finding. radiologist does mention he cannot rule out subtle pneumonia. we will defer from starting an antibiotic as he is hemodynamically stable with O2 saturation of 96 % at RA. His BP/HR are high likely due to his pain and/or fever. another thing to consider is drug fever, as he was started on a new medication -metoprolol but unlikely as usual offending medications are antibiotics. unlikely DVT/P.E. as he has been bridged and on anticoagulation. He has negative Olga and O2 saturation stable. We will continue with his incentive spirometry, breathing treatment and if his fever continues, will do CBC, CMP, BC, UCS, ESR, CRP and likely start him on an empiric antibiotic. Problem: Acute (2) Status post total replacement of right shoulder Diagnosis(s): post op day 1 Problem: Acute (3) COPD (chronic obstructive pulmonary disease) Problem: Chronic Qualifiers: COPD type: emphysema Emphysema type: unspecified Qualified Code(s): J43.9 - Emphysema, unspecified (4) DVT (deep venous thrombosis) Diagnosis(s): h/o Problem: Chronic Qualifiers: DVT location: lower extremity Affected thrombotic vein of extremity: unspecified vein of extremity Chronicity: unspecified Laterality: left Roberto lified Code(s): I82.402 - Acute embolism and thrombosis of unspecified deep veins of left lower extremity (5) Pulmonary embolism Diagnosis(s): h/o Problem: Chronic Qualifiers: Pulmonary embolism type: unspecified Chronicity: unspecified Acute cor pulmonale presence: without acute cor pulmonale Qualified Code(s): I26.99 - Other pulmonary embolism without acute cor pulmonale
[2018-11-17] MEDS: METOPROLOL TARTRATE 50 MG TABLET PO SCH (20:03)
[2018-11-17] MEDS: SENNOSIDES/DOCUSATE SODIUM 1 TAB TABLET PO SCH (20:03)
[2018-11-18] MEDS: oxyCODONE HCL/ACETAMINOPHEN 1 TAB TABLET PO PRN ×2 (02:12→07:07)
[2018-11-18 05:57] LABS: Prothrombin Time (Patient) 11.7 Seconds (9.1-10.7)
[2018-11-18 06:03] LABS: INR 1.19 INR (0.92-1.08)
[2018-11-18] MEDS: ENOXAPARIN SODIUM 40 MG/0.4 ML SYRG SC SCH (08:45)
[2018-11-18] MEDS: ASPIRIN 81 MG TABLET.DR PO SCH (08:46)
[2018-11-18] MEDS: FLUTICASONE PROPION/SALMETEROL 14 PUFF DISK.W.DEV IH SCH (08:46)
[2018-11-18] MEDS: METOPROLOL TARTRATE 50 MG TABLET PO SCH (08:47)
--- NOTE | 2018-11-18 08:47 | PN ---
Lisa Note - Interim Date: 11/18/18 Time: 08:45 Narrative: 11/18/18 08:45 Patient has been afebrile since then although he took Percoset at around 7 am for pain 6-/10. 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 Will repeat temp reading again. OK to be discharged if afebrile. Of note , he did get Ancef postop . If this is drug fever , expect resolution of fever in 3-4 days form when it was stopped (last dose was 9:30 a.m. yesterday morning).
--- NOTE | 2018-11-18 09:35 | DS ---
(1) Status post total replacement of right shoulder Problem: Acute Description of Stay: Patient is 63-year-old man who was admitted postoperatively after a right anatomic total shoulder replacement. Patient was admitted for postoperative monitoring, pain control with p.o. pain medication, return to p.o. diet, PT/OT. Patient was scheduled for discharge on 11/17/18 prior to discharge vital revealed a fever. Due to this new finding the discharge was stopped patient stayed to be monitored, a chest XR was preformed revealing consolidation in right lower lobe atelectasis vs. pneumonia. Medicine was consulted, at this time his fever has resolved, he has no significant difficulty breathing, he has been preform IS routinely. Educated patient to monitor for acute signs of infection, continue IS and deep breathing. Dr. Parekh states he agrees patient is safe for discharge. 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 Discussed with patient continued treatment with home physical therapy. Patient will be bridged with Lovenox, he was previously given a 5-day course of Lovenox to begin postoperatively he will follow-up on 11/22/18 with the Coumadin clinic. They will determine if his INR is therapeutic at this time. He will return to orthopedic outpatient clinic at 2 weeks postoperatively. He will continue to progress per protocol with physical therapy/occupational therapy at this time. Recommendations as follows: -Right upper extremity sling immobilizer, PT/OT exercises -P.o. pain medication as needed -P.o. diet as tolerated -Ambulation with right upper extremity in sling immobilizer -Lovenox for the next 5 days, previously prescribed by Coumadin clinic, will follow-up on 11/22/18 to monitor INR -Satnam Kincaid is confined to his home due to status post right total anatomic shoulder replacement. The need for alf, physical therapy, occupational therapy for monitoring postoperative wound for erythema and draina ge, PT/OT to advance per anatomic total shoulder protocol. The need for home health care skilled services is directly related to the time spent [id number] with this person. Patient will require the services until he is able to take himself to outpatient physical therapy/occupational therapy. -Follow-up with orthopedic outpatient clinic at [address] Robledo Procedures Performed: see notes below List Procedures: s/p right total shoulder replacement Results and Findings: Lab Pending Results 11/16/18 08:35: PT 10.3, INR (Anticoag Therapy) 1.04 11/17/18 05:05: PT 10.7, INR (Anticoag Therapy) 1.08 11/18/18 05:30: PT 11.7 H, INR (Anticoag Therapy) 1.19 H Discharge Location: Home Disposition: Home Health Service Home Health Agency: [facility] Condition: Good Face to Face Encounter completed per [facility] Guidelines: Yes Discharge Activity: Activity as tolerated, Non-Weight bearing - RUE except for PT/OT Discharge Diet: General/regular food Referrals: Eamon Parekh MD [Primary Care Provider] - Problem Oriented Discharge Instructions to Patient/Family: Shoulder Joint Replacement, Care After Print Language (Prydeinig or Greenlandic Available): Prydeinig Additional Patient Instructions (free text): - Folow up Orthopedics appointment in [facility] office 12/01 at 10:30am. Scheduled to see Rimma Ellison in the Coumadin clinic on 11/22/18. -Right upper extremity sling immobilizer, PT/OT exercises - pain medication as needed - diet as tolerated -Ambulation with right upper extremity in sling immobilizer -Lovenox for the next 5 days, previously prescribed by Coumadin clinic, will follow-up on 11/22/18 to monitor INR [facility] to follow at home, please call and fax discharge information to them. Prescriptions (Any new or edited meds): oxyCODONE HCL/ACETAMINOPHEN [Percocet 5 MG/325 MG] 1 - 2 tab PO Q4H PRN #80 tab PRN Reason: Severe Pain (Pain Scale 7-10) Complete Home Medications List: Complete Home Medication List: Albuterol Sulfate [Proventil Hfa] 1 - 2 puff IH Q6H PRN 05/29/13 Albuterol Sulfate 2.5 mg IH Q6H PRN 08/19/16 Aspirin [Aspirin Enteric Coated] 81 mg PO DAILY 08/19/16 Warfarin Sodium 5 mg PO TU 05/11/18 Warfarin Sodium [Coumadin] 7 mg PO SUMOWETHFRSA 05/11/18 omeprazole 20 mg capsule,delayed release 20 mg PO DAILY #90 cap 05/26/18 fluticasone 200 mcg-vilanterol 25 mcg/dose powder for inhalation 1 inh IH DAILY #60 ea 09/22/18 hydrocodone 7.5 mg-acetaminophen 300 mg tablet 1 tab PO Q6H PRN #60 tab 11/15/18 metoprolol tartrate 25 mg tablet 25 mg PO BID #60 tab 11/15/18 Tens Unit Electrodes [Aleve Direct Therapy] 0 pad .ROUTE .MEDSUPPLY 11/16/18 oxyCODONE HCL/ACETAMINOPHEN [Percocet 5 MG/325 MG] 1 - 2 tab PO Q4H PRN #80 tab 11/17/18
[2018-11-18 09:59] VITALS: BP 124/70
== END 2018-11-18 10:30 | disposition home health service (06) | DRG 483 ==
LOC: MS 07:41
PROVIDERS: ADMIT Orthopaedic Surgery; ATTEND Orthopaedic Surgery
DX: R94.31 Abnormal electrocardiogram [ECG] [EKG]; M19.011 Primary osteoarthritis, right shoulder; J44.9 Chronic obstructive pulmonary disease, unspecified; R50.82 Postprocedural fever; Z86.711 Personal history of pulmonary embolism; I37.1 Nonrheumatic pulmonary valve insufficiency; Z79.01 Long term (current) use of anticoagulants; Z86.718 Personal history of other venous thrombosis and embolism; I34.0 Nonrheumatic mitral (valve) insufficiency; I48.91 Unspecified atrial fibrillation
CPT/HCPCS: 36415; 71020; 71046; 73030; 85610; 94640; 94664; 97161; 97165

== ENCOUNTER 2019-01-08 17:13 | Inpatient (IN) ==
[2019-01-08] MEDS ORDERED: ACETAMINOPHEN 325 MG TABLET PO ONE (17:42)
[2019-01-08] MEDS ORDERED: DILTIAZEM HCL 5 MG/ML VIAL IV ONE ×2 (17:55→18:37)
[2019-01-08 18:01] LABS: Hematocrit 36.5 % (42.0-52.0); Hemoglobin 12.1 gm/dL (13.5-18.0); Mean Cell Volume 90.6 fl (78-100); Mean Corpuscular Hgb Conc 33.2 g/dl (32-36); Mean Platelet Volume 9.6 fl (8-11.3); Neutrophil # 13.4 K/mm3 (1.3-6.0); Neutrophil % 81.9 % (42-75.0); Platelet Count 339 K/mm3 (150-450); Red Blood Count 4.03 M/mm3 (4.7-6.0); Red Cell Distribution Width 12.8 % (11.5-14.0); White Blood Count 16.4 K/mm3 (4.0-10.5)
[2019-01-08 18:14] LABS: Prothrombin Time (Patient) 39.9 Seconds (9.1-10.7)
[2019-01-08 18:17] LABS: Albumin * 3.3 gm/dl (3.4-5.0); Anion Gap 16.7 mmol/L (6.8-13.8); BUN/Creatinine Ratio 8.5 (9.0-21.6); Bilirubin, Total 1.4 mg/dL (0.0-1.1); Ca. Corrected For Albumin 9.2 mg/dL (8.4-10.2); Carbon Dioxide 26.5 mmol/L (24-32.6); Potassium 3.2 mmol/L (3.4-4.6); Total Protein 7.8 gm/dL (6.2-8.2)
--- NOTE | 2019-01-08 18:20 | ERNOTE ---
Date of Service: 01/08/19 Time Seen by Provider: 01/08/19 17:32 Stated Complaint: Blood clots in lungs? Presenting Symptoms:: cough Source: patient, RN notes reviewed, past records Exam Limitations: no limitations Immunizations: IMMUNIZATION HX Immunizations Up to Date Yes History of Influenza Vaccine Yes Hx Pneumococcal Vaccination No Allergies/Adverse Reactions: Allergies bee venom protein (honey bee) Allergy (Verified 01/08/19 17:25) anaphylaxis ibuprofen Adverse Reaction (Mild, Verified 01/08/19 17:25) gi upset milk Adverse Reaction (Mild, Verified 01/08/19 17:25) intolerance Shpwudm-Mqi-Rxx Reductase Inhibitor Adverse Reaction (Mild, Verified 01/08/19 17:25) Muscle Pain Home Medications: HOME MEDICATIONS Albuterol Sulfate [Proventil Hfa] 1 - 2 puff IH Q6H PRN 05/29/13 [Last Taken Unknown] Albuterol Sulfate 2.5 mg IH Q6H PRN 08/19/16 [Last Taken Unknown] Warfarin Sodium [Coumadin] 7 mg PO SUMOWETHFRSA 05/11/18 [Last Taken 11/08/18] omeprazole 20 mg capsule,delayed release 20 mg PO DAILY #90 cap 05/26/18 [Last Taken 11/15/18] fluticasone 200 mcg-vilanterol 25 mcg/dose powder for inhalation 1 inh IH DAILY #60 ea 09/22/18 [Last Taken 11/15/18] metoprolol tartrate 25 mg tablet 25 mg PO BID #60 tab 11/15/18 [Last Taken 11/15/18] Tens Unit Electrodes [Aleve Direct Therapy] 0 pad .ROUTE .MEDSUPPLY 11/16/18 [Last Taken Unknown] warfarin 5 mg tablet 5 mg PO TU #30 tab 11/22/18 [Last Taken Unknown] Cyclobenzaprine HCl [Flexeril] 10 mg PO TID PRN #30 tab 12/22/18 [Last Taken Unknown] - History of Present Ilness Narrative: Satnam is a 63 year old male who drove himself to the ED from home for a cough with hemoptysis. He has been coughing for almost a week. Other family members have had a cough as well. He began coughing up small amounts of blood today. He is on Coumadin for a history of PE/DVT. His INR was 3.37 when it was checked yesterday and he was instructed to hold his Coumadin today. He also complains of neck pain that he attributes to his cough. He had been taking Flexeril for this but has not had any today. He has also been taking on OTC decongestant for his cough. He reports that this was something the pharmacist recommended for someone with high blood pressure. Timing: getting worse Frequency/Possible Cause: Reports: illness exposure Modifying Factors - Improves: Reports: nothing Modifying Factors - Worsens: Reports: nothing Associated Symptoms: Reports: cough, nasal congestion, nasal drainage, sore throat, muscle aches. Denies: chest pain/soreness, wheezing, dizziness, headache Prior Treatment: Reports: recently seen, recently hospitalized - Right shoulder replacement 11/16/18. Denies: currently on antibiotics Review of Systems - Review of Systems Constitutional: Present: fatigue, malaise EYE: Absent: eye pain, eye discharge ENT: Present: See HPI Respiratory: Present: See HPI Cardiology: Present: See HPI. Absent: palpitations, syncope, edema Gastrointestinal/Abdominal: Absent: vomiting, diarrhea, abdominal pain Genitourinary: Present: no symptoms reported Musculoskeletal: Present: muscle pain, neck pain. Absent: joint pain, joint swelling Skin: Absent: rash, lesions, lumps Neurological: Absent: headache, dizziness/light-headedness Endocrine: Present: no symptoms reported Hematologic/Lymphatic: Absent: easy bruising, easy bleeding Psych: Present: no symptoms reported Medical History (Updated 01/08/19 @ 19:23 by Donna Peterson NP) Osteoarthritis of shoulder (Chronic) Spinal stenosis (Chronic) Shoulder pain (Chronic) Onset Date: Unknown right Tenosynovitis of forearm (Chronic) Pulmonary embolism (Chronic) Osteopenia (Chronic) Osteoarthritis (Chronic) Lumbago (Chronic) Hyperlipidemia (Chronic) Clavicle fracture (Chronic) DVT (deep venous thrombosis) (Chronic) history COPD (chronic obstructive pulmonary disease) (Chronic) history Cervical spondylitis (Chronic) Back pain (Chronic) Surgical History: Surgical History (Updated 12/01/18 @ 10:37 by Ewa Lofton RN) History of inguinal hernia repair Onset Date: 07/29/18 [place]-left Status post total replacement of right shoulder Onset Date: 11/16/18 H/O arthroscopic knee surgery Onset Date: 08/20/10 [place]-right H/O esophagogastroduodenoscopy Onset Date: 06/23/07 [facility]-01/08/05-benign stratified squamous epithelium. 06/23/07-mild esophagitis. H/O hand surgery Onset Date: Unknown right H/O laminectomy Onset Date: 10/27/11 04/27/01, 04/2008, 10/27/11 [facility]-L3-L5 direct lateral interbody fusion and posterior lateral fusion H/O nasal septoplasty Onset Date: 11/25/01 [facility] History of arthroscopic surgery of shoulder Onset Date: 04/17/17 [place]-right w/mini open rotator cuff repair, biceps tenotomy, labrl debridement, subscapularis rotator cuff debridement. History of tonsillectomy Onset Date: ~1969 Loss of teeth due to extraction Onset Date: Unknown all teeth Previous back surgery Onset Date: 09/10/15 [facility]-Dr Found- 2 plates and 4 scews S/P epidural steroid injection Onset Date: 02/04/08 12/05/05-C3-4, 02/04/08-L3-4 S/P tendon repair Onset Date: ~1969 1969' right forearm h/o finger surgery Onset Date: Unknown [place]-left small finger History of carpal tunnel release Onset Date: 06/02/14 10/21/9939-Ernnvcr-ohoz. 06/02/14 [place]-right. History of colonoscopy Onset Date: 11/30/14 [facility]-01/08/05-adenomatous polyp w/superficial atypia and early carcinoma in situ. 06/23/07-internal hemorrhoids. 10/04/13 [facility]-diverticulosis. Recheck 10 yrs. 11/30/1444-Butuftj-baacdwl polyps. History of total hip replacement Onset Date: ~07/2008 Left-1986, 1989, 07/2008 revision left total hip S/P cubital tunnel release Onset Date: 06/02/14 10/21/99 [place]-left. 06/02/14 [place]-right history of bone graph Onset Date: ~1982 [facility]-left leg Family History: Family History (Updated 07/12/18 @ 10:57 by Nohemi Lawson RN) Father , never knew him No problems noted. Mother Heart disease Hypertension Diabetes CVA (cerebral vascular accident) Brother Diabetes 1 brother Alive and well 1 brother Sister Cancer brain cancer, female cancer Diabetes Daughter Down's syndrome Social History: Preferred Language Turkmen Do you have any sabianist or No cultural preference? Smoking Status Current every day smoker Smoking packs per day 1.5 Abuse History No History of abuse Psych History No pertinent hx Alcohol Use rarely Drug Use none (Last Updated 12/29/18 @ 13:38 by Carroll Robledo MD) No Social History Section defined Physical Exam - Physical Exam General Appearance: Present: wd/wn, alert, mild distress Head Exam: Present: normal inspection Eye Exam: Normal inspection: bilateral Ears, Nose, Throat: Present: nasal congestion, pharyngeal erythema. Absent: abnormal TM (R), abnormal TM (L), dry mucous membranes Neck: Present: limited range of motion, other - diffuse tenderness posteriorly. Absent: lymphadenopathy (R), lymphadenopathy (L) Respiratory: Present: no respiratory distress, no accessory muscle use, decreased breath sounds, rhonchi - right lung feilds, other - Frequent cough with small amounts of bloody sputum Cardiovascular/Chest: Present: tachycardia, irregularly irregular Extremity Exam: Present: normal inspection, no edema Neurological Exam: Present: alert, oriented, normal mood/affect, no motor/sensory deficits Skin Exam: Present: warm/dry, pallor Progress - Results and Orders Patient's Lab Results:: I have reviewed the patient's lab results. - Vital Signs Patient's Vital Signs:: I have reviewed the patient's vital signs. Vital Signs: Vital Signs 01/08/19 17:15 01/08/19 18:10 01/08/19 18:14 Temperature 38.6 C H 38.3 C H Pulse Rate 64 170 H 139 H Respiratory Rate 18 16 Blood Pressure 163/131 H 140/65 185/82 H O2 Sat by Pulse Oximetry 94 92 L - EKG EKG #1 EKG: atrial fibrillation - with RVR, rate 150 EKG read: Reviewed by me - X-Ray X-Ray #1 X-Ray: chest Interpretation: Interp. by me X-ray Comments: No infiltrate or consolidation, RLL density seen on 11/17 xray resolved - Progress/Reassessment Chief Complaint: Cough Progress:: Improved Plan - Plan Plan: The patient was noted to be tachycardic with an irregular rhythm on auscultation. His EKG shows Afib with RVR at 150. He has no prior history of this. He was given 10 mg of Cardizem with some improvement from a rate up to 170 to mostly 140's. He was then given 20 mg and is now running in the 120's. A drip has been started. His INR is higher today at 4.2, likely the cause of his hemoptysis as he had already been coughing for several days. His WBC is elevated at 16,400 and he was febrile on arrival. His oxygen saturation is in the mid 90's on room air. Dr. Brian was contacted and the patient will be admitted. Departure Clinical Impression: New onset atrial fibrillation, Cough with hemoptysis, Acute exacerbation of chronic obstructive pulmonary disease - Departure Disposition: Still a patient Condition: Stable Referrals: Eamon Parekh MD [Primary Care Provider] -
[2019-01-08 18:29] LABS: INR 4.26 INR (0.92-1.08)
[2019-01-08] MEDS: DILTIAZEM HCL 125 MG in DEXTROSE 5 % IN WATER 100 ML IV PRN ×2 (19:47)
[2019-01-08] MEDS ORDERED: ALBUTEROL SULFATE 200 PUFF INHALER IH PRN (21:48)
--- NOTE | 2019-01-08 21:52 | HP ---
Chief Complaint - Chief Complaint Date of Service: 01/08/19 Time of Service: 21:52 Chief Complaint: Bloody cough History of Present Illness: 63-year-old male presented to the ER with 1 day history of bloody cough. Patient states that he has been sick over the last week, been around sick contacts with the same symptoms. Started to have bloody cough today. 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 While here he was found to have a heart rate in 150s to 170s, EKG showed A. fib with RVR. No history of A. fib prior to this. Patient was given 2 doses of oral diltiazem which brought his rate down into the 110s to 120s. He was admitted to the floor under inpatient for new onset A. fib with RVR. He was transferred to the unit and placed on diltiazem drip, current rate at 15. No longer having bloody cough. Rest of his vital signs been stable, he is afebrile. Only other concern is he does have some neck pain which he states he was diagnosed with cervical strain from coughing so much over the last week. Pertinent labs include an elevated white count 16.4 with a left shift of 81.9%. An INR of 4.26. He is mildly anemic at 12.1/36.5. Can panel shows him to be slightly hypokalemic with 3.2. No other pertinent labs. Chest x-ray showed no acute cardiopulmonary changes, mild hyperinflation and scattered fibrotic changes from COPD. There is minimal atelectasis adjacent to the left hemidiaphragm but otherwise unremarkable. Medical History (Updated 01/08/19 @ 21:52 by Dennis Brian DO) Osteoarthritis of shoulder (Chronic) Spinal stenosis (Chronic) Shoulder pain (Chronic) Onset Date: Unknown right Tenosynovitis of forearm (Chronic) Pulmonary embolism (Chronic) Osteopenia (Chronic) Osteoarthritis (Chronic) Lumbago (Chronic) Hyperlipidemia (Chronic) Clavicle fracture (Chronic) DVT (deep venous thrombosis) (Chronic) history COPD (chronic obstructive pulmonary disease) (Chronic) history Cervical spondylitis (Chronic) Back pain (Chronic) Surgical History: Surgical History (Updated 01/08/19 @ 21:52 by Dennis Brian DO) History of inguinal hernia repair Onset Date: 07/29/18 [facility]-left Status post total replacement of right shoulder Onset Date: 11/16/18 H/O arthroscopic knee surgery Onset Date: 08/20/10 Wil-right H/O esophagogastroduodenoscopy Onset Date: 06/23/07 Radha-01/08/05-benign stratified squamous epithelium. 06/23/07-mild esophagitis. H/O hand surgery Onset Date: Unknown right H/O laminectomy Onset Date: 10/27/11 04/27/01, 04/2008, 10/27/11 [facility]-L3-L5 direct lateral interbody fusion and posterior lateral fusion H/O nasal septoplasty Onset Date: 11/25/01 [facility] History of arthroscopic surgery of shoulder Onset Date: 04/17/17 [facility]-right w/mini open rotator cuff repair, biceps tenotomy, labrl debridement, subscapularis rotator cuff debridement. History of tonsillectomy Onset Date: ~1969 Loss of teeth due to extraction Onset Date: Unknown all teeth Previous back surgery Onset Date: 09/10/15 [facility]-Dr Found- 2 plates and 4 scews S/P epidural steroid injection Onset Date: 02/04/08 12/05/05-C3-4, 02/04/08-L3-4 S/P tendon repair Onset Date: ~1969 1969' right forearm h/o finger surgery Onset Date: Unknown [facility]-left small finger History of carpal tunnel release Onset Date: 06/02/14 10/21/9946-Aixrgzv-ytag. 06/02/14 [facility]-right. History of colonoscopy Onset Date: 11/30/14 Radha-01/08/05-adenomatous polyp w/superficial atypia and early carcinoma in situ. 06/23/07-internal hemorrhoids. 10/04/13 Tinguely-diverticulosis. Recheck 10 yrs. 11/30/1470-Yzlsjqr-utfngda polyps. History of total hip replacement Onset Date: ~07/2008 Left-1986, 1989, 07/2008 revision left total hip S/P cubital tunnel release Onset Date: 06/02/14 10/21/99 [facility]-left. 06/02/14 [facility]-right history of bone graph Onset Date: ~1982 [facility]-left leg Family History: Family History (Updated 07/12/18 @ 10:57 by Nohemi Lawson RN) Father , never knew him No problems noted. Mother Heart disease Hypertension Diabetes CVA (cerebral vascular accident) Brother Diabetes 1 brother Alive and well 1 brother Sister Cancer brain cancer, female cancer Diabetes Daughter Down's syndrome Social History: Preferred Language Georgian Do you have any taoist or No cultural preference? Smoking Status Current every day smoker Smoking packs per day 1.5 Abuse History No History of abuse Psych History No pertinent hx Alcohol Use rarely Drug Use none (Last Updated 12/29/18 @ 13:38 by Carroll Robledo MD) No Social History Section defined Review Of Systems (GEN) - Review of Systems Generalized/Overall Review: Absent: Weakness, Chills, Fever, Fatigue EENTM: Present: Throat Pain. Absent: Ear Pain, Ear Discharge, Nose Pain, Nose Congestion Respiratory: Present: Cough - Bloody, Shortness of Breath. Absent: Stridor, Wheezing Cardiac: Present: Edema - Chronic left lower extremity swelling. Absent: Chest Pain, Palpitations, Syncope Abdominal: Absent: Nausea, Vomiting, Hematemesis, Abdominal Pain Genitourinary: Present: No Symptoms Reported Musculoskeletal: Present: Neck Pain Neurological: Present: No Symptoms Reported Skin: Present: No Symptoms Reported Endocrine: Present: No Symptoms Reported Immunizations: IMMUNIZATION HX Immunizations Up to Date Yes History of Influenza Vaccine Yes Hx Pneumococcal Vaccination No Allergies/Adverse Reactions: Allergies Allergy/AdvReac Type Severity Reaction Status Date / Time bee venom protein (honey bee) Allergy anaphylaxis Verified 01/08/19 17:25 ibuprofen AdvReac Mild gi upset Verified 01/08/19 17:25 milk AdvReac Mild intolerance Verified 01/08/19 17:25 Goohyph-Kku-Bkh Reductase AdvReac Mild Muscle Pain Verified 01/08/19 17:25 Inhibitor Home Medications: HOME MEDICATIONS Albuterol Sulfate [Proventil Hfa] 1 - 2 puff IH Q6H PRN 05/29/13 [Last Taken Unknown] Albuterol Sulfate 2.5 mg IH Q6H PRN 08/19/16 [Last Taken Unknown] Warfarin Sodium [Coumadin] 7 mg PO .MONFRI 05/11/18 [Last Taken 11/08/18] omeprazole 20 mg capsule,delayed release 20 mg PO DAILY #90 cap 05/26/18 [Last Taken 11/15/18] metoprolol tartrate 25 mg tablet 25 mg PO BID #60 tab 11/15/18 [Last Taken 11/15/18] Tens Unit Electrodes [Aleve Direct Therapy] 0 pad .ROUTE .MEDSUPPLY 11/16/18 [Last Taken Unknown] Cyclobenzaprine HCl [Flexeril] 10 mg PO TID PRN #30 tab 12/22/18 [Last Taken Unknown] Fluticasone/Vilanterol [Breo Ellipta 200-25 Mcg INH] 1 ea INHALATION QAM 01/08/19 [Last Taken Unknown] Warfarin Sodium 5 mg PO .TUWEDTHURSATSUN 01/08/19 [Last Taken Unknown] Exam - Exam Vital Signs: Vital Signs - Last Taken Temp 37.3 C 01/08/19 20:52 Pulse 128 H 01/08/19 20:52 Resp 26 H 01/08/19 20:52 BP 153/78 H 01/08/19 20:52 Pulse Ox 95 01/08/19 20:52 Constitutional: Present: Alert, Oriented x3, Cooperative, Mild distress - Neck pain ENT Exam: Present: pharyngeal erythema. Absent: nasal congestion, nasal drainage Eye Exam: bilateral eye: normal inspection Neck: Present: stiff neck. Absent: non-tender, full range of motion, lymphadenopathy (R), lymphadenopathy (L) Respiratory: Present: lungs clear, normal breath sounds Cardiovascular/Chest: Present: no murmur, irregularly irregular, edema - Left lower extremity edema +1 nonpitting, no edema in right lower extremity Abdomen: Present: Normal bowel sounds, soft, nontender, nondistended Skin Exam: Present: normal color, warm/dry Appearance: Present: appropriate appearance, appropriate insight Eye contact: Present: cooperative, good eye contact Thoughts: Present: normal thought pattern, normal mood /affect Diagnostic Studies: Abnormal Lab Results 01/08/19 01/08/19 01/08/19 Range/Units 17:45 18:03 18:03 WBC 16.4 H (4.0-10.5) K/mm3 RBC 4.03 L (4.7-6.0) M/mm3 Hgb 12.1 L (13.5-18.0) gm/dL Hct 36.5 L (42.0-52.0) % Immature Gran % (Auto) 0.50 H (0.001-0.429) % Immature Gran # (Auto) 0.09 H (0.000-0.0310) K/mm3 Neutrophils % 81.9 H (42-75.0) % Lymphocytes % 10.1 L (20-51) % Neutrophils # 13.4 H (1.3-6.0) K/mm3 Monocytes # 1.2 H (0.0-1.0) k/mm3 PT 39.9 H (9.1-10.7) Seconds INR (Anticoag Therapy) 4.26 H* (0.92-1.08) INR Potassium 3.2 L (3.4-4.6) mmol/L Chloride 95 L (97-106) mmol/L Anion Gap 16.7 H (6.8-13.8) mmol/L BUN/Creatinine Ratio 8.5 L (9.0-21.6) Random Glucose 131 H (70-110) mg/dL Total Bilirubin 1.4 H (0.0-1.1) mg/dL ALT 17 L (19-67) U/L Albumin 3.3 L (3.4-5.0) gm/dl Laboratory Results WBC 16.4 K/mm3 (4.0-10.5) H 01/08/19 17:45 RBC 4.03 M/mm3 (4.7-6.0) L 01/08/19 17:45 Hgb 12.1 gm/dL (13.5-18.0) L 01/08/19 17:45 Hct 36.5 % (42.0-52.0) L 01/08/19 17:45 MCV 90.6 fl (78-100) 01/08/19 17:45 MCH 30.0 pg (27-31) 01/08/19 17:45 MCHC 33.2 g/dl (32-36) 01/08/19 17:45 RDW 12.8 % (11.5-14.0) 01/08/19 17:45 Plt Count 339 K/mm3 (150-450) 01/08/19 17:45 MPV 9.6 fl (8-11.3) 01/08/19 17:45 Immature Gran % (Auto) 0.50 % (0.001-0.429) H 01/08/19 17:45 Immature Gran # (Auto) 0.09 K/mm3 (0.000-0.0310) H 01/08/19 17:45 81.9 % (42-75.0) H 01/08/19 17:45 10.1 % (20-51) L 01/08/19 17:45 7.1 % (0.0-9) 01/08/19 17:45 0.1 % (0.0-3.0) 01/08/19 17:45 0.3 % (0.0-1.0) 01/08/19 17:45 Nucleated RBC % 0.0 k/mm3 (0-1) 01/08/19 17:45 13.4 K/mm3 (1.3-6.0) H 01/08/19 17:45 1.65 k/mm3 (1.5-3.5) 01/08/19 17:45 1.2 k/mm3 (0.0-1.0) H 01/08/19 17:45 0.0 k/mm3 (0.0-0.7) 01/08/19 17:45 Absolute Basophils 0.1 k/mm3 (0.0-0.1) 01/08/19 17:45 PT 39.9 Seconds (9.1-10.7) H 01/08/19 18:03 INR (Anticoag Therapy) 4.26 INR (0.92-1.08) H* 01/08/19 18:03 Sodium 135 mmol/L (132-142) 01/08/19 18:03 135 mmol/L (130-142) 01/08/19 18:03 Potassium 3.2 mmol/L (3.4-4.6) L 01/08/19 18:03 Chloride 95 mmol/L (97-106) L 01/08/19 18:03 Carbon Dioxide 26.5 mmol/L (24-32.6) 01/08/19 18:03 16.7 mmol/L (6.8-13.8) H 01/08/19 18:03 BUN 8 mg/dL (6-23) D 01/08/19 18:03 0.94 mg/dL (0.4-1.4) 01/08/19 18:03 Est GFR (Non-Af Amer) 86 mL/min (60-130) 01/08/19 18:03 8.5 (9.0-21.6) L 01/08/19 18:03 131 mg/dL (70-110) H 01/08/19 18:03 1.1 mmol/L (0.4-2.0) 01/08/19 18:03 Calcium 9.0 mg/dL (7.9-10.9) 01/08/19 18:03 Calcium Adj for Albumin 9.2 mg/dL (8.4-10.2) 01/08/19 18:03 1.4 mg/dL (0.0-1.1) H 01/08/19 18:03 AST 12 U/L (0-48) 01/08/19 18:03 ALT 17 U/L (19-67) L 01/08/19 18:03 149 U/L (50-170) 01/08/19 18:03 7.8 gm/dL (6.2-8.2) 01/08/19 18:03 3.3 gm/dl (3.4-5.0) L 01/08/19 18:03 Assessment/Plan - Assessment/Plan (1) Supratherapeutic INR Assessment: Patient admitted to the hospital as inpatient, currently in the ICU on Cardizem drip. Drip is running at 15 mils per hour. Rate controlled but he is not converted back to normal sinus rhythm. Patient currently asymptomatic from cardiac standpoint, states he feels fine. Only concern is that he does have some muscle stiffness in his neck, Tylenol for this. If patient converts back to normal sinus rhythm we will transfer him to the floor and start him on oral Cardizem. Continue metoprolol 25 mg twice daily. We will continue to monitor INR, hold warfarin. Patient does not need vitamin K at this time as he is not actively bleeding is vital signs are stable. If his INR does not start trending downward, or continues to elevate over the next day or 2 then we will give vitamin K. Patient is only other chronic medications are for COPD, will continue those as directed. Patient placed on a regular diet, no DVT prophylaxis needed at this time as his INR is supratherapeutic. Problem: Acute (2) Cervical muscle strain Problem: Acute (3) Upper respiratory infection Problem: Acute (4) New onset atrial fibrillation Problem: Acute (5) Cough with hemoptysis Problem: Acute
[2019-01-08] MEDS ORDERED: ALBUTEROL SULFATE 2.5 MG/0.5 ML VIAL.NEB IH PRN (22:00)
[2019-01-08] MEDS: METOPROLOL TARTRATE 25 MG TABLET PO SCH (22:10)
[2019-01-08 22:15] LABS: Prothrombin Time (Patient) 44.8 Seconds (9.1-10.7)
[2019-01-08 22:18] LABS: INR 4.81 INR (0.92-1.08)
[2019-01-09] MEDS: ACETAMINOPHEN 500 MG TABLET PO PRN ×3 (02:07→22:18)
[2019-01-09] MEDS: DILTIAZEM HCL 125 MG in DEXTROSE 5 % IN WATER 100 ML IV PRN ×4 (03:52→12:46)
[2019-01-09 07:48] LABS: Prothrombin Time (Patient) 52.2 Seconds (9.1-10.7)
[2019-01-09 07:52] LABS: INR 5.64 INR (0.92-1.08)
[2019-01-09] MEDS: METOPROLOL TARTRATE 25 MG TABLET PO SCH ×2 (09:00→20:45)
[2019-01-09] MEDS: FLUTICASONE PROPION/SALMETEROL 14 PUFF DISK.W.DEV IH SCH ×2 (09:00→20:45)
--- NOTE | 2019-01-09 13:13 | PN ---
Subjective - Date and Time Seen Date: 01/09/19 Time: 10:33 Subjective Narrative: Patient did well overnight, no acute events. Heart rate continued to be maintained in the 80s and 90s on Cardizem drip though he is not converted. He denies shortness of breath, chest pain, dizziness. States he cannot feel the abnormal rhythm. Rest of his vitals been stable. Cough also improving. Objective - Review of Systems Generalized/Overall Review: Denies: Weakness, Chills, Fever EENTM: Denies: Blurred Vision, Double Vision Respiratory: Reports: Cough. Denies: Shortness of Breath, Wheezing Cardiac: Reports: Edema - Trace left lower examinee. Denies: Chest Pain, Palpitations, Syncope Abdominal: Denies: Nausea, Vomiting, Constipation Genitourinary Symptoms: Reports: No Symptoms Reported Musculoskeletal Complaints: Reports: Neck Pain Skin: Reports: No Symptoms Reported Endocrine: Reports: No Symptoms Reported - Vitals Vitals: Last Vital Signs Temp 36.9 C 01/09/19 12:00 Pulse 91 01/09/19 12:00 Resp 20 01/09/19 12:00 BP 114/60 01/09/19 12:00 Pulse Ox 98 01/09/19 12:00 - Abnormal Lab Findings Abnormal Lab Findings: Abnormal Lab Results 01/08/19 01/08/19 01/08/19 Range/Units 17:45 18:03 18:03 WBC 16.4 H (4.0-10.5) K/mm3 RBC 4.03 L (4.7-6.0) M/mm3 Hgb 12.1 L (13.5-18.0) gm/dL Hct 36.5 L (42.0-52.0) % Immature Gran % (Auto) 0.50 H (0.001-0.429) % Immature Gran # (Auto) 0.09 H (0.000-0.0310) K/mm3 Neutrophils % 81.9 H (42-75.0) % Lymphocytes % 10.1 L (20-51) % Neutrophils # 13.4 H (1.3-6.0) K/mm3 Monocytes # 1.2 H (0.0-1.0) k/mm3 PT 39.9 H (9.1-10.7) Seconds INR (Anticoag Therapy) 4.26 H* (0.92-1.08) INR Potassium 3.2 L (3.4-4.6) mmol/L Chloride 95 L (97-106) mmol/L Anion Gap 16.7 H (6.8-13.8) mmol/L BUN/Creatinine Ratio 8.5 L (9.0-21.6) Random Glucose 131 H (70-110) mg/dL Total Bilirubin 1.4 H (0.0-1.1) mg/dL ALT 17 L (19-67) U/L Albumin 3.3 L (3.4-5.0) gm/dl 01/08/19 01/09/19 Range/Units 22:00 07:35 WBC (4.0-10.5) K/mm3 RBC (4.7-6.0) M/mm3 Hgb (13.5-18.0) gm/dL Hct (42.0-52.0) % Immature Gran % (Auto) (0.001-0.429) % Immature Gran # (Auto) (0.000-0.0310) K/mm3 Neutrophils % (42-75.0) % Lymphocytes % (20-51) % Neutrophils # (1.3-6.0) K/mm3 Monocytes # (0.0-1.0) k/mm3 PT 44.8 H 52.2 H (9.1-10.7) Seconds INR (Anticoag Therapy) 4.81 H* 5.64 H* (0.92-1.08) INR Potassium (3.4-4.6) mmol/L Chloride (97-106) mmol/L Anion Gap (6.8-13.8) mmol/L BUN/Creatinine Ratio (9.0-21.6) Random Glucose (70-110) mg/dL Total Bilirubin (0.0-1.1) mg/dL ALT (19-67) U/L Albumin (3.4-5.0) gm/dl - Exam Constitutional: Present: Alert, Oriented x3, Cooperative, Well developed ENT Exam: Present: hearing grossly normal. Absent: nasal congestion, nasal drainage, pharyngeal erythema Neck: Present: tender lateral. Absent: full range of motion Respiratory: Present: lungs clear, normal breath sounds, no respiratory distress Cardiovascular/Chest: Present: no murmur, irregularly irregular Abdomen: Present: Normal bowel sounds, soft, nontender, nondistended /Rectal: Present: Exam deferred Skin Exam: Present: normal color, warm/dry Appearance: Present: appropriate appearance, appropriate insight Eye contact: Present: cooperative, good eye contact Thoughts: Present: normal thought pattern, normal mood /affect Assessment/Plan Plan Narrative: Patient admitted to the hospital as inpatient, currently in the ICU on Cardizem drip. Drip is running at 15 mils per hour. Rate controlled but he is not converted back to normal sinus rhythm. Patient currently asymptomatic from car diac standpoint, states he feels fine. Plan is to start on oral Cardizem today and monitor for another 24 hours, if rate is well controlled he can be discharged home with follow-up with Dr. Denton as well as have a cardiology referral placed. Continue metoprolol tartrate 25 mg twice daily Continue Tylenol for muscle stiffness in his neck. We will continue to monitor INR, hold warfarin. Again is elevated this morning but patient not actively bleeding, patient does not need vitamin K at this time. If his INR does not start trending downward, or continues to elevate over the next day or 2 then we will give vitamin K. Will restart warfarin once INR is between 2 and 3. Continue chronic medications for COPD Patient placed on a regular diet, no DVT prophylaxis needed at this time as his INR is supratherapeutic. Vital signs been stable and is maintaining good sats. Nurse to call with any questions or concerns.
[2019-01-09] MEDS: DILTIAZEM HCL 30 MG TABLET PO SCH (20:45)
[2019-01-10] MEDS: DILTIAZEM HCL 30 MG TABLET PO SCH ×3 (03:48→20:34)
[2019-01-10 07:30] LABS: Prothrombin Time (Patient) 19.3 Seconds (9.1-10.7)
[2019-01-10] MEDS: FLUTICASONE PROPION/SALMETEROL 14 PUFF DISK.W.DEV IH SCH ×2 (08:08→20:33)
[2019-01-10] MEDS: METOPROLOL TARTRATE 25 MG TABLET PO SCH ×2 (08:08→20:34)
[2019-01-10] MEDS: ACETAMINOPHEN 500 MG TABLET PO PRN ×2 (08:09→16:39)
[2019-01-10] MEDS ORDERED: WARFARIN SODIUM 2 MG TABLET PO SCH (09:15)
--- NOTE | 2019-01-10 11:42 | PN ---
Subjective - Date and Time Seen Date: 01/10/19 Time: 11:35 Subjective Narrative: Overall patient did well overnight, no acute events. Vital signs have remained stable and his heart rate has been controlled in the 80s and 90s after transitioning to oral diltiazem. He denies chest pain, shortness of breath. Patient only question is when will he be able to be discharged home. Objective - Review of Systems Generalized/Overall Review: Denies: Weakness, Chills, Fever Respiratory: Reports: Cough. Denies: Shortness of Breath, Wheezing Cardiac: Reports: Edema - Left lower extremity, no changes, chronic. Denies: Chest Pain, Palpitations Abdominal: Denies: Nausea, Vomiting, Abdominal Pain Genitourinary Symptoms: Reports: No Symptoms Reported Musculoskeletal Complaints: Reports: Neck Pain - Improving Skin: Reports: No Symptoms Reported Endocrine: Reports: No Symptoms Reported - Vitals Vitals: Last Vital Signs Temp 36.2 C 01/10/19 08:00 Pulse 99 01/10/19 10:27 Resp 24 H 01/10/19 09:00 BP 130/69 01/10/19 09:00 Pulse Ox 93 01/10/19 09:00 - Abnormal Lab Findings Abnormal Lab Findings: Abnormal Lab Results 01/10/19 Range/Units 07:15 PT 19.3 H (9.1-10.7) Seconds INR (Anticoag Therapy) 2.00 H (0.92-1.08) INR - Exam Constitutional: Present: Alert, Oriented x3, Cooperative, Well developed, Well nourished ENT Exam: Present: hearing grossly normal. Absent: nasal congestion, nasal drainage Neck: Present: limited range of motion, tender lateral. Absent: lymphadenopathy (R), lymphadenopathy (L) Respiratory: Present: lungs clear, normal breath sounds, no respiratory distress Cardiovascular/Chest: Present: no murmur, irregularly irregular Abdomen: Present: Normal bowel sounds, soft, nontender, nondistended Skin Exam: Present: normal color, warm/dry Appearance: Present: appropriate appearance, appropriate insight - Patient Eye contact: Present: cooperative, good eye contact Thoughts: Present: normal thought pattern, normal mood /affect Assessment/Plan Plan Narrative: Currently patient is feeling well, he did well overnight while in the ICU. His Cardizem drip was stopped roughly at 9 PM last night, he was started on oral diltiazem 30 mg 3 times daily which is continued his rate control in the 80s and 90s. Will titrate up as needed. Patient likely can go home tomorrow with close follow-up with his PCP as well as cardiology referral if he maintains rate control. INR returned to normal today, will restart Coumadin. Patient's cough is also improving, states he is no longer coughing up any red-tinged sputum. States he is breathing well. COPD medication has been continued but he is maintaining good oxygen saturations on room air and the rest of his vitals been stable. Overall clinically he is stable and should be able to be discharged home tomorrow barring any unforeseen changes in his clinical picture. Neck pain starting to calm down, Tylenol as needed. Continue regular diet. No DVT prophylaxis as patient is on Coumadin and he is therapeutic. Nurse to call with any questions or concerns - Problems/Diagnosis (1) New onset atrial fibrillation Problem: Acute (2) Cough with hemoptysis Problem: Acute (3) Supratherapeutic INR Problem: Acute (4) Cervical muscle strain Problem: Acute
[2019-01-10] MEDS ORDERED: WARFARIN SODIUM 5 MG, WARFARIN SODIUM 2 MG PO SCH ×2 (17:00)
[2019-01-11] MEDS: ACETAMINOPHEN 500 MG TABLET PO PRN ×2 (00:48→11:13)
[2019-01-11] MEDS: DILTIAZEM HCL 30 MG TABLET PO SCH ×2 (04:39→12:26)
[2019-01-11] MEDS: METOPROLOL TARTRATE 25 MG TABLET PO SCH (08:39)
[2019-01-11] MEDS: FLUTICASONE PROPION/SALMETEROL 14 PUFF DISK.W.DEV IH SCH (08:39)
[2019-01-11 12:00] LABS: Prothrombin Time (Patient) 15.8 Seconds (9.1-10.7)
[2019-01-11 12:02] LABS: INR 1.63 INR (0.92-1.08)
--- NOTE | 2019-01-11 13:20 | DS ---
(1) Atrial fibrillation with rapid ventricular response Problem: Acute Description of Stay: Satnam is a 63 yo male that was admitted for atrial fibrillation with rapid ventricular response. He was admitted to SCU on diltiazem drip which improved his rate and he converted to normal sinus rhythm. He was switched to oral diltiazem. He also presented with supratherapeutic INR and his coumadin was held. He reported taking some decongestants prior to this episode, but otherwise no changes in medication. He has been taking his metoprolol as prescribed. His rate has been controlled and he is overall feeling well and ready for home discharge. Rather than have him on metoprolol and diltiazem will plan to incr ease metoprolol and not continue him on diltiazem. He will continue the same dose of coumadin and follow up with coumadin clinic in a week. Procedures Performed: none Results and Findings: Pending Mircobiology Results 01/08/19 18:03 Blood Blood Culture - Preliminary NO GROWTH AFTER 48 HOURS 01/08/19 17:50 Blood Blood Culture - Preliminary NO GROWTH AFTER 48 HOURS Lab Pending Results 01/08/19 17:45: WBC 16.4 H, RBC 4.03 L, Hgb 12.1 L, Hct 36.5 L, MCV 90.6, MCH 30.0, MCHC 33.2, RDW 12.8, Plt Count 339, MPV 9.6, Immature Gran % (Auto) 0.50 H, Immature Gran # (Auto) 0.09 H, Neutrophils % 81.9 H, Lymphocytes % 10.1 L, Monocytes % 7.1, Eosinophils % 0.1, Basophils % 0.3, Nucleated RBC % 0.0, Neutrophils # 13.4 H, Lymphocytes # 1.65, Monocytes # 1.2 H, Eosinophils # 0.0, Absolute Basophils 0.1 01/08/19 18:03: PT 39.9 H, INR (Anticoag Therapy) 4.26 H* 01/08/19 18:03: Sodium 135, Plasma Sodium 135, Potassium 3.2 L, Chloride 95 L, Carbon Dioxide 26.5, Anion Gap 16.7 H, BUN 8 D, Creatinine 0.94, Est GFR (Non- Af Amer) 86, BUN/Creatinine Ratio 8.5 L, Random Glucose 131 H, Calcium 9.0, Calcium Adj for Albumin 9.2, Total Bilirubin 1.4 H, AST 12, ALT 17 L, Alkaline Phosphatase 149, Total Protein 7.8, Albumin 3.3 L 01/08/19 18:03: Lactic Acid, Venous 1.1 01/08/19 22:00: PT 44.8 H, INR (Anticoag Therapy) 4.81 H* 01/09/19 07:35: PT 52.2 H, INR (Anticoag Therapy) 5.64 H* 01/10/19 07:15: PT 19.3 H, INR (Anticoag Therapy) 2.00 H 01/11/19 11:40: PT 15.8 H, INR (Anticoag Therapy) 1.63 H Discharge Location: Home Disposition: Home self-care Condition: Stable Discharge Activity: Activity as tolerated Discharge Diet: General/regular food Referrals: Eamon Parekh MD [Primary Care Provider] - One Week Problem Oriented Discharge Instructions to Patient/Family: Atrial Fibrillation, [id number] Additional Patient Instructions (free text): Anticoagulation clinic appointment moved to 01/18/18 @08:00 -Please make TCM appointment unless alf discharge. Thank you! Faina @ [phone]. Prescriptions (Any new or edited meds): Metoprolol Tartrate [Lopressor] 50 mg PO BID #60 tab Complete Home Medications List: Complete Home Medication List: Albuterol Sulfate [Proventil Hfa] 1 - 2 puff IH Q6H PRN 05/29/13 Albuterol Sulfate 2.5 mg IH Q6H PRN 08/19/16 Warfarin Sodium [Coumadin] 7 mg PO .MONFRI 05/11/18 omeprazole 20 mg capsule,delayed release 20 mg PO DAILY #90 cap 05/26/18 Tens Unit Electrodes [Aleve Direct Therapy] 0 pad .ROUTE .MEDSUPPLY 11/16/18 Cyclobenzaprine HCl [Flexeril] 10 mg PO TID PRN #30 tab 12/22/18 Fluticasone/Vilanterol [Breo Ellipta 200-25 Mcg INH] 1 ea INHALATION QAM 01/08/19 Warfarin Sodium 5 mg PO .FRANCHESKADTHURSATSUN 01/08/19 Metoprolol Tartrate [Lopressor] 50 mg PO BID #60 tab 01/11/19
[2019-01-11 13:39] VITALS: BP 152/76
[2019-01-11] MEDS ORDERED: WARFARIN SODIUM 5 MG TABLET PO SCH (17:00)
== END 2019-01-11 14:06 | disposition home or self-care (01) | DRG 309 ==
LOC: ER 17:13 → SCU 20:14 → MS 01-10 09:32
PROVIDERS: ADMIT Family Medicine; ATTEND Internal Medicine
CPT/HCPCS: 36415; 71020; 71046; 80053; 83605; 85025; 85610; 87040; 93005; 96365; 96375; 96376; 99285